=== PATIENT | female | born 1995 | race Caucasian/White ===

== ENCOUNTER 2018-09-18 05:10 | Emergency (ER) | payer MEDICAID ==
[~2018-09-18] VITALS: Ht 160 cm; Wt 84.0 kg
[~2018-09-18 05:10] MED LIST: PENI500T2 PO
[2018-09-18] MEDS ORDERED: NAPR-56 PO (06:26)
[2018-09-18] MEDS ORDERED: DIPH25CA83 PO (06:26)
[2018-09-18] MEDS ORDERED: naproxen 500mg tablet PO ONE (06:40)
[2018-09-18 06:52] VITALS: BP 141/91
== END 2018-09-18 06:53 | disposition home or self-care (01) ==
LOC: ER 05:10
DX: J06.9 Acute upper respiratory infection, unspecified (principal); Z79.899 Other long term (current) drug therapy
CPT/HCPCS: 87081; 87880; 99283

== ENCOUNTER 2018-10-12 14:16 | Emergency (ER) | payer MEDICAID ==
[~2018-10-12] VITALS: Ht 162.6 cm; Wt 83.0 kg
[~2018-10-12 14:16] MED LIST changes: +DIPH25CA83 PO; +NAPR-56 PO
[2018-10-12 14:55] VITALS: BP 140/91
[2018-10-12] MEDS ORDERED: DEC4T PO (15:25)
[2018-10-12] MEDS ORDERED: CLIN150C2 PO (15:25)
== END 2018-10-12 15:30 | disposition home or self-care (01) ==
LOC: ER 14:17
DX: K04.7 Periapical abscess without sinus (principal); Z79.899 Other long term (current) drug therapy
CPT/HCPCS: 99283

== ENCOUNTER 2018-12-13 23:30 | Emergency (ER) | payer MEDICAID ==
[~2018-12-13] VITALS: Ht 160 cm; Wt 82.3 kg
[~2018-12-13 23:30] MED LIST changes: +DEC4T PO; -NAPR-56 PO
[2018-12-13 23:35] VITALS: BP 147/89
[2018-12-14] MEDS ORDERED: AMOX500C2 PO (00:51)
[2018-12-14] MEDS ORDERED: ibuprofen tablet 400 MG TABLET PO ONE (00:55)
== END 2018-12-14 01:09 | disposition home or self-care (01) ==
LOC: ER 23:31
DX: H66.91 Otitis media, unspecified, right ear (principal)
CPT/HCPCS: 99283

== ENCOUNTER 2019-04-30 21:42 | Emergency (ER) | payer MEDICAID ==
[~2019-04-30] VITALS: Ht 160 cm; Wt 86.0 kg
[2019-04-30 21:45] VITALS: BP 138/86
== END 2019-04-30 22:34 | disposition home or self-care (01) ==
LOC: ER 21:42
DX: S63.591A Other specified sprain of right wrist, initial encounter (principal); V00.131A Fall from skateboard, initial encounter; Y93.51 Activity, roller skating (inline) and skateboarding; Y92.89 Other specified places as the place of occurrence of the external cause; Y99.9 Unspecified external cause status
CPT/HCPCS: 29125; 73120; 99283

== ENCOUNTER 2019-11-24 11:51 | Emergency (ER) | payer MEDICAID ==
[~2019-11-24] VITALS: Ht 160 cm; Wt 92.7 kg
[2019-11-24 12:03] VITALS: BP 126/86
[2019-11-24] MEDS ORDERED: PRED20TA PO (12:16)
[2019-11-24] MEDS ORDERED: AZIT250T81 PO (12:16)
== END 2019-11-24 12:26 | disposition home or self-care (01) ==
LOC: ER 11:52
DX: J32.9 Chronic sinusitis, unspecified (principal); J45.909 Unspecified asthma, uncomplicated; Z79.2 Long term (current) use of antibiotics; Z79.899 Other long term (current) drug therapy
CPT/HCPCS: 99283

== ENCOUNTER 2020-02-24 00:13 | Emergency (ER) | payer MEDICAID ==
[~2020-02-24] VITALS: Ht 160 cm; Wt 87.3 kg
[2020-02-24] MEDS ORDERED: HYDR-3965 PO (00:57)
[2020-02-24] MEDS ORDERED: CYCL-1 PO (00:57)
[2020-02-24 01:16] VITALS: BP 144/90
== END 2020-02-24 01:21 | disposition home or self-care (01) ==
LOC: ER 00:14
DX: M54.5 Low back pain (principal); M25.551 Pain in right hip; M25.552 Pain in left hip; J45.909 Unspecified asthma, uncomplicated; Z79.899 Other long term (current) drug therapy; V89.2XXA Person injured in unspecified motor-vehicle accident, traffic, initial encounter; Y93.89 Activity, other specified; Y92.488 Other paved roadways as the place of occurrence of the external cause; Y99.8 Other external cause status
CPT/HCPCS: 99283

== ENCOUNTER 2021-05-17 09:49 | Emergency (ER) | payer MEDICAID ==
[~2021-05-17 09:49] MED LIST changes: +CYCL-1 PO
[2021-05-17 10:10] VITALS: BP 133/85
== END 2021-05-17 11:17 | disposition home or self-care (01) ==
LOC: ER 09:50
DX: S93.402A Sprain of unspecified ligament of left ankle, initial encounter (principal); M25.572 Pain in left ankle and joints of left foot; J45.909 Unspecified asthma, uncomplicated; Z79.2 Long term (current) use of antibiotics; Z79.899 Other long term (current) drug therapy; W18.30XA Fall on same level, unspecified, initial encounter; Y93.89 Activity, other specified; Y92.89 Other specified places as the place of occurrence of the external cause; Y99.8 Other external cause status
CPT/HCPCS: 73610; 99283

== ENCOUNTER 2022-09-29 20:23 | Emergency (ER) | payer MEDICAID ==
[~2022-09-29] VITALS: Ht 160 cm; Wt 100.0 kg
[2022-09-29 20:28] VITALS: BP 150/60
== END 2022-09-29 21:16 | disposition home or self-care (01) ==
LOC: ER 20:24
DX: S93.491A Sprain of other ligament of right ankle, initial encounter (principal); J45.909 Unspecified asthma, uncomplicated; Z79.899 Other long term (current) drug therapy; X50.1XXA Overexertion from prolonged static or awkward postures, initial encounter; Y93.89 Activity, other specified; Y92.89 Other specified places as the place of occurrence of the external cause; Y99.8 Other external cause status
CPT/HCPCS: 99282; A6449

== ENCOUNTER 2023-02-13 20:22 | Emergency (ER) | payer MEDICAID ==
[~2023-02-13] VITALS: Ht 160 cm; Wt 103.2 kg
[2023-02-13 20:39] VITALS: BP 146/97
[2023-02-13] MEDS ORDERED: ibuprofen tablet 400 MG TABLET PO ONE (22:20)
== END 2023-02-13 22:41 | disposition home or self-care (01) ==
LOC: ER 20:23
DX: M25.562 Pain in left knee (principal); J45.909 Unspecified asthma, uncomplicated; Z79.899 Other long term (current) drug therapy; X58.XXXA Exposure to other specified factors, initial encounter; Y93.89 Activity, other specified; Y92.89 Other specified places as the place of occurrence of the external cause; Y99.8 Other external cause status
CPT/HCPCS: 29530; 73564; 99283

== ENCOUNTER 2023-10-14 10:19 | Emergency (ER) | payer MEDICAID ==
[~2023-10-14] VITALS: Ht 167.6 cm; Wt 100.0 kg
[2023-10-14] MEDS ORDERED: IBUP-1984 PO (15:03)
[2023-10-14 15:25] VITALS: BP 138/87; PULSE 86; RESP 18; TEMP 98.6; O2SAT 99
== END 2023-10-14 15:31 | disposition home or self-care (01) ==
LOC: ER 10:19
DX: S93.492A Sprain of other ligament of left ankle, initial encounter (principal); M76.62 Achilles tendinitis, left leg; X50.9XXA Other and unspecified overexertion or strenuous movements or postures, initial encounter; Y93.89 Activity, other specified; Y92.89 Other specified places as the place of occurrence of the external cause; Y99.8 Other external cause status
CPT/HCPCS: 73610; 99283; L1930; 29515